=== PATIENT | female | born 1975 | race Caucasian/White ===

== ENCOUNTER 2018-02-10 21:36 | Emergency (ER) | payer SELFPAY ==
[~2018-02-10] VITALS: Ht 175.3 cm; Wt 84.4 kg
[2018-02-10 21:59] VITALS: BP 119/78
[2018-02-10] MEDS ORDERED: MORPHINE SULFATE 10 MG/ML VIAL. IM ONE (22:15)
[2018-02-10] MEDS ORDERED: diazePAM 5 MG TABLET PO ONE (22:15)
--- NOTE | 2018-02-10 22:30 | PHYS DOC ---
Past Medical History Past Medical History: No Pertinent History Past Surgical History: Tubal ligation Alcohol Use: None Drug Use: None Adult General Chief Complaint Chief Complaint: MECHANICAL FALL HPI HPI Patient is a 42 year old female who presents with right knee pain. Patient was evading an aggressive dog. She was running up some steps onto a porch when she fell causing injury to the right knee. She also strained her low back. The accident just happened prior to arrival. She complains of left low back pain and right knee pain. She has been able to weight-bear but with pain. Denies additional injury. The dog did not actually bite her. Review of Systems Review of Systems Constitutional: Denies fever Eyes: Denies change in visual acuity HENT: Denies nasal congestion Respiratory: Denies cough or shortness of breath Cardiovascular: No additional information not addressed in HPI GI: Denies : Denies Musculoskeletal: as above Integument: Denies Neurologic: Denies headache All other systems were reviewed and found to be within normal limits, except as documented in this note. Current Medications Current Medications Current Medications Medications (Trade) Dose Ordered Sig/Fausto Start Time Stop Time Status Last Admin Dose Admin Diazepam (Valium) 5 mg 1X ONCE 02/10/18 22:15 02/10/18 22:16 DC 02/10/18 22:23 5 MG Morphine Sulfate (Morphine Sulfate) 8 mg 1X ONCE 02/10/18 22:15 02/10/18 22:16 DC 02/10/18 22:24 8 MG Allergies Allergies Allergies Coded Allergies Type Severity Reaction Last Updated Verified No Known Drug Allergies 02/10/18 No Physical Exam Physical Exam Constitutional: Well developed, well nourished, no acute distress, non-toxic appearance HENT: Normocephalic, atraumatic, bilateral external ears normal Eyes: PERRLA, EOMI Neck: Normal range of motion, no tenderness Cardiovascular:Heart rate regular rhythm Lungs & Thorax: Bilateral breath sounds clear to auscultation Skin: Warm, dry, no erythema, no rash Back: + TTP over left lumbar paraspinal muscles. no midline tenderness. right knee is diffusely TTP, no effusion. ROM is mildly painful but she is able to ROM Extremities: No tenderness, no cyanosis Neurologic: Alert and oriented X 3 Psychologic: Affect normal Current Patient Data Vital Signs Vital Signs Date Time Temp Pulse Resp B/P (MAP) Pulse Ox O2 Delivery O2 Flow Rate FiO2 02/10/18 22:24 18 98 Room Air 02/10/18 21:59 98.6 94 119/78 (92) 98.6 EKG EKG [] Radiology/Procedures Radiology/Procedures [] Course & Med Decision Making Course & Med Decision Making Pertinent Labs and Imaging studies reviewed. (See chart for details) 22:10: Patient is seen and examined. Xrays ordered. Meds for pain. 23:00: X-ray is reviewed. No acute findings. Patient is feeling improved. Plan is for discharge home. She is given ibuprofen, Valium, tramadol to use at home as needed for pain. Follow-up with primary care doctor or return to the ER. Dragon Disclaimer Dragon Disclaimer This electronic medical record was generated, in whole or in part, using a voice recognition dictation system. Departure Departure Disposition: 01 HOME, SELF-CARE Condition: GOOD Referrals: NO PCP (PCP) Scripts Diazepam (VALIUM) 5 Mg Tablet 5 MG PO BID for muscle spasm, #10 TAB Prov: JOANA HEART DO 02/10/18 Tramadol Hcl (TRAMADOL HCL) 50 Mg Tablet 50 MG PO BID PRN for SEVERE PAIN, #20 TAB 0 Refills Prov: JOANA HEART DO 02/10/18 Ibuprofen (IBUPROFEN) 800 Mg Tablet 800 MG PO PRN TID PRN for PAIN, #30 TAB take with food or milk to avoid upsetting stomach Prov: JOANA HEART DO 02/10/18 JOANA HEART DO Feb 10, 2018 22:30
[2018-02-10] MEDS ORDERED: IBUP-1060 PO (23:00)
[2018-02-10] MEDS ORDERED: TRAM50TA PO (23:00)
[2018-02-10] MEDS ORDERED: DIAZ5TAB PO (23:00)
--- NOTE | 2018-02-10 23:15 | RAD ---
Three-view right knee dated 02/10/2018. No comparison available. Clinical data indication: Medial sided knee pain after fall today. FINDINGS: 3 views of right knee show normal bony alignment. No displaced fracture. No acute osseous or articular abnormality. No apparent joint effusion or loose body. IMPRESSION: No acute radiographic abnormality. Electronically signed by: Abdi Currie MD (02/10/2018 11:11 PM) [facility]
== END 2018-02-10 23:25 | disposition home or self-care (01) ==
LOC: ER 21:36
DX: S89.81XA Other specified injuries of right lower leg, initial encounter (principal); M25.561 Pain in right knee; M54.5 Low back pain; Z98.51 Tubal ligation status; W10.8XXA Fall (on) (from) other stairs and steps, initial encounter; Y93.02 Activity, running; Y92.89 Other specified places as the place of occurrence of the external cause; Y99.8 Other external cause status
CPT/HCPCS: 73562; 96372; 99283; J2270

== ENCOUNTER 2018-05-11 21:32 | Emergency (ER) | payer SELFPAY ==
[~2018-05-11] VITALS: Ht 175.3 cm; Wt 83.0 kg
[~2018-05-11 21:32] MED LIST: DIAZ5TAB PO; IBUP-1060 PO; TRAM50TA PO
--- NOTE | 2018-05-11 22:00 | PHYS DOC ---
Past Medical History Additional Past Medical Histor: Hepatitis C Past Surgical History: Tubal ligation Smoking: Cigarettes, 1 Pack Per Day Alcohol Use: None Drug Use: None Adult General Chief Complaint Chief Complaint: SHORTNESS OF BREATH HPI HPI Patient is a 43-year-old female who presents to the emergency department for evaluation of multiple medical complaints. She states that for the past several days, she has had a cough, productive of some thick sputum, when she is able to cough some sputum up. Her cough is mostly nonproductive. She states she has a headache only when coughing, but does not have a headache currently. She has also had some urinary frequency and hesitancy, but has not had any dysuria. She has had some generalized lower back discomfort. She has not had any fevers or chills. She developed diarrhea yesterday, but has not had any bloody stools. She has not had any nausea, vomiting, or abdominal pain. Coughing seems to worsen her symptoms. There are no alleviating factors to her symptoms otherwise. Review of Systems Review of Systems Constitutional: Denies fever or chills [] Eyes: Denies change in visual acuity, redness, or eye pain [] HENT: Denies nasal congestion or sore throat [] Respiratory: Denies hemoptysis or shortness of breath [] Cardiovascular: The patient denies any shortness of breath, chest pain, palpitations, or orthopnea [] GI: Denies abdominal pain, nausea, vomiting, bloody stools [] : Denies hematuria [] Musculoskeletal: Denies or joint pain [] Integument: Denies rash or skin lesions [] Neurologic: Denies headache, focal weakness or sensory changes [] Endocrine: Denies polyuria or polydipsia [] All other systems were reviewed and found to be within normal limits, except as documented in this note. Allergies Allergies Allergies Coded Allergies Type Severity Reaction Last Updated Verified No Known Drug Allergies 02/10/18 No Physical Exam Physical Exam PHYSICAL EXAM: CONSTITUTIONAL: Well developed, well nourished HEAD: normocephalic, atraumatic EENT: PERRL, EOMI. Conjunctivae normal color, sclerae non-icteric; moist mucous membranes. NECK: Supple, non-tender; no meningismus. LUNGS: Lungs CTA, breathing even and unlabored. Normal air movement. HEART: Regular rate and rhythm, no murmur CHEST: No deformity; non-tender ABDOMEN: The abdomen is soft, mild diffuse tenderness to palpation of the abdomen, without focal tenderness, rebound, or guarding , no masses or bruits. EXTREM: Normal ROM; no deformity, no calf tenderness. Normal pulses palpable in all extremities. There is no pedal edema. SKIN: No rash; no diaphoresis NEURO: Alert; normal speech and cognition; CN's grossly intact; strength grossly intact without focal deficit. BACK: No CVA TTP. Current Patient Data Vital Signs Vital Signs Date Time Temp Pulse Resp B/P (MAP) Pulse Ox O2 Delivery O2 Flow Rate FiO2 05/11/18 21:35 97.4 86 18 104/53 (70) 99 Room Air 97.4 Lab Values Laboratory Tests Test 05/11/18 21:40 05/11/18 21:42 05/11/18 21:45 05/11/18 22:05 Urine Collection Type Unknown Urine Color Yellow Urine Clarity Clear Urine pH 6.0 Urine Specific [place] 1.020 Urine Protein Negative mg/dL (NEG-TRACE) Urine Glucose (UA) Negative mg/dL (NEG) Urine Ketones (Stick) Negative mg/dL (NEG) Urine Blood Moderate (NEG) Urine Nitrite Negative (NEG) Urine Bilirubin Negative (NEG) Urine Urobilinogen Dipstick 1.0 mg/dL (0.2 mg/dL) Urine Leukocyte Esterase Negative (NEG) Urine RBC Occ /HPF (0-2) Urine WBC 1-4 /HPF (0-4) Urine Squamous Epithelial Cells Mod /LPF Urine Bacteria Moderate /HPF (0-FEW) Urine Mucus Mod /LPF POC Urine HCG, Qualitative Hcg negative (Negative) White Blood Count 4.4 x10^3/uL (4.0-11.0) Red Blood Count 4.46 x10^6/uL (3.50-5.40) Hemoglobin 14.8 g/dL (12.0-15.5) Hematocrit 43.2 % (36.0-47.0) Mean Corpuscular Volume 97 fL (79-100) Mean Corpuscular Hemoglobin 33 pg (25-35) Mean Corpuscular Hemoglobin Concent 34 g/dL (31-37) Red Cell Distribution Width 13.3 % (11.5-14.5) Platelet Count 208 x10^3/uL (140-400) Neutrophils (%) (Auto) 46 % (31-73) Lymphocytes (%) (Auto) 42 % (24-48) Monocytes (%) (Auto) 9 % (0-9) Eosinophils (%) (Auto) 2 % (0-3) Basophils (%) (Auto) 2 % (0-3) Neutrophils # (Auto) 2.0 x10^3uL (1.8-7.7) Lymphocytes # (Auto) 1.8 x10^3/uL (1.0-4.8) Monocytes # (Auto) 0.4 x10^3/uL (0.0-1.1) Eosinophils # (Auto) 0.1 x10^3/uL (0.0-0.7) Basophils # (Auto) 0.1 x10^3/uL (0.0-0.2) Sodium Level 136 mmol/L (136-145) Potassium Level 3.5 mmol/L (3.5-5.1) Chloride Level 100 mmol/L (98-107) Carbon Dioxide Level 25 mmol/L (21-32) Anion Gap 11 (6-14) Blood Urea Nitrogen 7 mg/dL (7-20) Creatinine 1.0 mg/dL (0.6-1.0) Estimated GFR (Cockcroft-Gault) 60.0 BUN/Creatinine Ratio 7 (6-20) Glucose Level 98 mg/dL (70-99) Calcium Level 8.9 mg/dL (8.5-10.1) Total Bilirubin 0.2 mg/dL (0.2-1.0) Aspartate Amino Transferase (AST) 45 U/L (15-37) H Alanine Aminotransferase (ALT) 60 U/L (14-59) H Alkaline Phosphatase 112 U/L (46-116) Total Protein 8.6 g/dL (6.4-8.2) H Albumin 3.7 g/dL (3.4-5.0) Albumin/Globulin Ratio 0.8 (1.0-1.7) L Lipase 150 U/L (73-393) Influenza Type A Antigen Positive (NEGATIVE) Influenza Type B Antigen Negative (NEGATIVE) Laboratory Tests 05/11/18 21:45 Laboratory Tests 05/11/18 21:45 EKG EKG Normal sinus rhythm a rate of 75 beats for minute, normal axis, normal intervals , poor anterior R progression without acute ischemic ST/T changes.[] Radiology/Procedures Radiology/Procedures ER physician preliminary chest x-ray interpretation: No acute disease[] Course & Med Decision Making Course & Med Decision Making Pertinent Labs and Imaging studies reviewed. (See chart for details) [10:44 PM:Patient remains stable. I discussed test results, the need for close follow-up, and return precautions.] Dragon Disclaimer Dragon Disclaimer This electronic medical record was generated, in whole or in part, using a voice recognition dictation system. Departure Departure Impression: Primary Impression: Influenza A Disposition: HOME, SELF-CARE Condition: STABLE Patient Instructions: Cough, Adult, Dysuria, Influenza, Adult Scripts Benzonatate (TESSALON PERLE) 100 Mg Capsule 1 CAP PO TID, #21 CAP Prov: GEORGE DAVISON MD 05/11/18 Oseltamivir Phosphate (TAMIFLU) 75 Mg Capsule 1 CAP PO BID, #10 CAP Prov: GEORGE DAVISON MD 05/11/18 Sulfamethoxazole/Trimethoprim (BACTRIM DS TABLET) 1 Each Tablet 1 TAB PO BID, #6 TAB Prov: GEORGE DAVISON MD 05/11/18 GEORGE DAVISON MD May 11, 2018 22:00
[2018-05-11 22:12] LABS: BASO # 0.1 x10^3/uL (0.0-0.2); BASO % 2 % (0-3); EOS # 0.1 x10^3/uL (0.0-0.7); EOS % 2 % (0-3); HEMATOCRIT 43.2 % (36.0-47.0); HEMOGLOBIN 14.8 g/dL (12.0-15.5); LYMPH # 1.8 x10^3/uL (1.0-4.8); LYMPH % 42 % (24-48); MEAN CORPUSCULAR HEMOGLOBIN 33 pg (25-35); MEAN CORPUSCULAR HGB CONC 34 g/dL (31-37); MEAN CORPUSCULAR VOLUME 97 fL (79-100); MONO # 0.4 x10^3/uL (0.0-1.1); MONO % 9 % (0-9); NEUT % 46 % (31-73); PLATELET COUNT 208 x10^3/uL (140-400); RED BLOOD COUNT 4.46 x10^6/uL (3.50-5.40); RED CELL DISTRIBUTION WIDTH 13.3 % (11.5-14.5); WHITE BLOOD COUNT 4.4 x10^3/uL (4.0-11.0)
[2018-05-11 22:13] LABS: BILIRUBIN,URINE NEGATIVE (NEG); CLARITY,URINE CLEAR; COLOR,URINE YELLOW; NITRITE,URINE NEGATIVE (NEG); PROTEIN,URINE NEGATIVE (NEG-TRACE)
[2018-05-11 22:17] LABS: BACTERIA,URINE MODERATE /HPF (0-FEW); RBC,URINE OCC /HPF (0-2)
[2018-05-11 22:18] LABS: SQUAMOUS EPITHELIAL CELL,UR MOD /LPF
[2018-05-11 22:19] LABS: CALCIUM 8.9 mg/dL (8.5-10.1); POTASSIUM 3.5 mmol/L (3.5-5.1)
[2018-05-11 22:26] LABS: ALBUMIN 3.7 g/dL (3.4-5.0); ALBUMIN/GLOBULIN RATIO 0.8 (1.0-1.7); TOTAL BILIRUBIN 0.2 mg/dL (0.2-1.0); TOTAL PROTEIN 8.6 g/dL (6.4-8.2)
[2018-05-11 22:30] LABS: INFLUENZA A PATIENT POSITIVE (NEGATIVE); INFLUENZA B PATIENT NEGATIVE (NEGATIVE)
[2018-05-11] MEDS ORDERED: BENZ100C PO (22:48)
[2018-05-11] MEDS ORDERED: OSEL75CA PO (22:48)
[2018-05-11] MEDS ORDERED: SULF1TAB24 PO (22:48)
[2018-05-11 23:00] VITALS: BP 147/65
--- NOTE | 2018-05-12 01:22 | RAD ---
Two-view chest dated 05/11/2018. No comparison available. CLINICAL INDICATION: Cough for 2 days. FINDINGS: PA and lateral views obtained. Heart and mediastinal contours are within normal limits. Lungs are somewhat hyperinflated but otherwise clear. No consolidation or pleural effusion. Calcified right hilar lymph nodes with mild peribronchial thickening. IMPRESSION: 1. No acute radiographic abnormality. 2. Mild peribronchial thickening could be related to acute or chronic bronchial inflammatory process. Electronically signed by: Abdi Currie MD (05/12/2018 1:20 AM) [facility]
--- NOTE | 2018-05-12 07:20 | EKG ---
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
== END 2018-05-11 23:38 | disposition home or self-care (01) ==
LOC: ER 21:32
DX: J10.1 Influenza due to other identified influenza virus with other respiratory manifestations (principal); F17.210 Nicotine dependence, cigarettes, uncomplicated; Z98.51 Tubal ligation status
CPT/HCPCS: 36415; 71046; 80053; 81001; 81025; 83690; 85025; 87086; 87804; 93005; 99284-25

== ENCOUNTER 2019-01-04 10:47 | Emergency (ER) | payer SELFPAY ==
[~2019-01-04] VITALS: Ht 175.3 cm; Wt 79.8 kg
[~2019-01-04 10:47] MED LIST changes: +BENZ100C PO; +CEPH500C PO; +OSEL75CA PO; +SULF1TAB24 PO
[2019-01-04] MEDS ORDERED: IV NORMAL SALINE 1000ML BAG 1,000 ML IV SCH (11:14)
[2019-01-04] MEDS ORDERED: ONDANSETRON PF 4 MG/2 ML VIAL. IV ONE (11:15)
[2019-01-04] MEDS ORDERED: MECLIZINE HCL 12.5 MG TABLET. PO ONE (11:15)
[2019-01-04] MEDS ORDERED: SCOPOLAMINE 1.5MG PATCH. TD ONE (11:15)
[2019-01-04] MEDS ORDERED: LORazepam 0.5 MG TABLET PO ONE (11:15)
[2019-01-04 11:25] LABS: BILIRUBIN,URINE NEGATIVE (NEG); CLARITY,URINE CLEAR; COLOR,URINE YELLOW; NITRITE,URINE NEGATIVE (NEG); PROTEIN,URINE NEGATIVE (NEG-TRACE); UROBILINOGEN,URINE 0.2 mg/dL (0.2 mg/dL)
[2019-01-04 11:33] LABS: BASO # 0.1 x10^3/uL (0.0-0.2); BASO % 1 % (0-3); EOS # 0.1 x10^3/uL (0.0-0.7); EOS % 2 % (0-3); HEMOGLOBIN 15.2 g/dL (12.0-15.5); LYMPH # 1.8 x10^3/uL (1.0-4.8); LYMPH % 31 % (24-48); MEAN CORPUSCULAR HEMOGLOBIN 34 pg (25-35); MEAN CORPUSCULAR HGB CONC 35 g/dL (31-37); MEAN CORPUSCULAR VOLUME 97 fL (79-100); MONO # 0.4 x10^3/uL (0.0-1.1); MONO % 7 % (0-9); NEUT # 3.4 x10^3/uL (1.8-7.7); NEUT % 59 % (31-73); PLATELET COUNT 202 x10^3/uL (140-400); RED BLOOD COUNT 4.46 x10^6/uL (3.50-5.40); RED CELL DISTRIBUTION WIDTH 13.2 % (11.5-14.5); WHITE BLOOD COUNT 5.8 x10^3/uL (4.0-11.0)
[2019-01-04 11:35] LABS: BACTERIA,URINE MANY /HPF (0-FEW); RBC,URINE 0 /HPF (0-2); SQUAMOUS EPITHELIAL CELL,UR MANY /LPF; WBC,URINE 0 /HPF (0-4)
[2019-01-04 11:39] LABS: CALCIUM 9.4 mg/dL (8.5-10.1); CREATININE 0.8 mg/dL (0.6-1.0); GFR 77.6; POTASSIUM 4.1 mmol/L (3.5-5.1)
[2019-01-04 11:44] LABS: ALBUMIN 3.9 g/dL (3.4-5.0); ALBUMIN/GLOBULIN RATIO 0.8 (1.0-1.7); MAGNESIUM 1.9 mg/dL (1.8-2.4); TOTAL BILIRUBIN 0.5 mg/dL (0.2-1.0); TOTAL PROTEIN 8.7 g/dL (6.4-8.2)
[2019-01-04 12:18] VITALS: BP 109/70
--- NOTE | 2019-01-04 12:47 | RAD ---
CT HEAD WO CONTRAST History: Dizziness. Comparison: None. Technique: Noncontrast CT imaging was performed of the head. Exposure: One or more of the following individualized dose reduction techniques were utilized for this examination: 1. Automated exposure control 2. Adjustment of the mA and/or kV according to patient size 3. Use of iterative reconstruction technique. Findings: No intracranial hemorrhage. No mass effect. No hydrocephalus. Extra-axial spaces are unremarkable. Imaged orbits are unremarkable. Imaged paranasal sinuses and mastoid air cells are clear. Impression: 1. No acute intracranial abnormality. Electronically signed by: Skyler Reveles DO (01/04/2019 12:44 PM) [facility]
--- NOTE | 2019-01-04 12:51 | PHYS DOC ---
Past Medical History Past Medical History: No Pertinent History, Hepatitis Additional Past Medical Histor: Hepatitis C Past Surgical History: Tubal ligation Alcohol Use: None Drug Use: None Adult General Chief Complaint Chief Complaint: DIZZY/LIGHT HEADED HPI HPI Patient is a 43-year-old female who presents with acute onset of dizziness that started yesterday. She states that the dizziness feels like everything is spinning. She states the symptoms are worsened when she changes position or turn s her head quickly. She does indicate that she has had some nausea but no vomiting. She also states that she feels very off balance. She denies any falls and has had no head injury. She states that she had a similar episode a few weeks ago that lasted 3 days and then spontaneously resolved. She states that this time it seems like the symptoms are worse. She denies any lateralizing weakness, facial droop or speech deficits.[] Review of Systems Review of Systems Constitutional: Denies fever or chills [] Respiratory: Denies cough or shortness of breath [] Cardiovascular: No additional information not addressed in HPI [] GI: Denies abdominal pain, vomiting or diarrhea. Patient does admit to nausea. [] Integument: Denies rash or skin lesions [] Neurologic: Denies headache, focal weakness or sensory changes. Complains of vertiginous dizziness. [] All other systems were reviewed and found to be within normal limits, except as documented in this note. Current Medications Current Medications Current Medications Medications (Trade) Dose Ordered Sig/Fausto Start Time Stop Time Status Last Admin Dose Admin Lorazepam (Ativan) 0.5 mg 1X ONCE 01/04/19 11:15 01/04/19 11:18 DC 01/04/19 11:27 0.5 MG Meclizine HCl (Antivert) 25 mg 1X ONCE 01/04/19 11:15 01/04/19 11:18 DC 01/04/19 11:27 25 MG Ondansetron HCl (Zofran) 4 mg 1X ONCE 01/04/19 11:15 01/04/19 11:18 DC 01/04/19 11:27 4 MG Scopolamine (Transderm-Scop) 1 patch 1X ONCE 01/04/19 11:15 01/04/19 11:18 DC 01/04/19 11:27 1 PATCH Sodium Chloride 1,000 ml @ 1,000 mls/hr Q1H 01/04/19 11:14 01/04/19 12:13 DC 01/04/19 11:26 1,000 MLS/HR Allergies Allergies Allergies Coded Allergies Type Severity Reaction Last Updated Verified No Known Drug Allergies 02/10/18 No Physical Exam Physical Exam Constitutional: Well developed, well nourished, no acute distress, non-toxic appearance. [] HENT: Normocephalic, atraumatic, bilateral external ears normal, oropharynx moist, no oral exudates, nose normal. [] Eyes: PERRLA, EOMI, conjunctiva normal, no discharge. [] Neck: Normal range of motion, no tenderness, supple. [] Cardiovascular: Regular rate and rhythm[] Lungs & Thorax: Bilateral breath sounds clear to auscultation [] Abdomen: Bowel sounds normal, soft, no tenderness. [] Skin: Warm, dry, no erythema, no rash. [] Extremities: No tenderness, no cyanosis, no clubbing, ROM intact. [] Neurologic: Alert and oriented X 3, no focal deficits noted. [] Current Patient Data Vital Signs Vital Signs Date Time Temp Pulse Resp B/P (MAP) Pulse Ox O2 Delivery O2 Flow Rate FiO2 01/04/19 10:50 98.8 85 14 124/84 (97) 98 Room Air 98.8 Lab Values Laboratory Tests Test 01/04/19 10:50 01/04/19 11:20 Urine Collection Type Unknown Urine Color Yellow Urine Clarity Clear Urine pH 6.0 Urine Specific [place] <=1.005 Urine Protein Negative mg/dL (NEG-TRACE) Urine Glucose (UA) Negative mg/dL (NEG) Urine Ketones (Stick) Negative mg/dL (NEG) Urine Blood Negative (NEG) Urine Nitrite Negative (NEG) Urine Bilirubin Negative (NEG) Urine Urobilinogen Dipstick 0.2 mg/dL (0.2 mg/dL) Urine Leukocyte Esterase Negative (NEG) Urine RBC 0 /HPF (0-2) Urine WBC 0 /HPF (0-4) Urine Squamous Epithelial Cells Many /LPF Urine Bacteria Many /HPF (0-FEW) White Blood Count 5.8 x10^3/uL (4.0-11.0) Red Blood Count 4.46 x10^6/uL (3.50-5.40) Hemoglobin 15.2 g/dL (12.0-15.5) Hematocrit 43.0 % (36.0-47.0) Mean Corpuscular Volume 97 fL (79-100) Mean Corpuscular Hemoglobin 34 pg (25-35) Mean Corpuscular Hemoglobin Concent 35 g/dL (31-37) Red Cell Distribution Width 13.2 % (11.5-14.5) Platelet Count 202 x10^3/uL (140-400) Neutrophils (%) (Auto) 59 % (31-73) Lymphocytes (%) (Auto) 31 % (24-48) Monocytes (%) (Auto) 7 % (0-9) Eosinophils (%) (Auto) 2 % (0-3) Basophils (%) (Auto) 1 % (0-3) Neutrophils # (Auto) 3.4 x10^3/uL (1.8-7.7) Lymphocytes # (Auto) 1.8 x10^3/uL (1.0-4.8) Monocytes # (Auto) 0.4 x10^3/uL (0.0-1.1) Eosinophils # (Auto) 0.1 x10^3/uL (0.0-0.7) Basophils # (Auto) 0.1 x10^3/uL (0.0-0.2) Sodium Level 141 mmol/L (136-145) Potassium Level 4.1 mmol/L (3.5-5.1) Chloride Level 104 mmol/L (98-107) Carbon Dioxide Level 28 mmol/L (21-32) Anion Gap 9 (6-14) Blood Urea Nitrogen 4 mg/dL (7-20) L Creatinine 0.8 mg/dL (0.6-1.0) Estimated GFR (Cockcroft-Gault) 77.6 BUN/Creatinine Ratio 5 (6-20) L Glucose Level 96 mg/dL (70-99) Calcium Level 9.4 mg/dL (8.5-10.1) Magnesium Level 1.9 mg/dL (1.8-2.4) Total Bilirubin 0.5 mg/dL (0.2-1.0) Aspartate Amino Transferase (AST) 49 U/L (15-37) H Alanine Aminotransferase (ALT) 72 U/L (14-59) H Alkaline Phosphatase 102 U/L (46-116) Total Protein 8.7 g/dL (6.4-8.2) H Albumin 3.9 g/dL (3.4-5.0) Albumin/Globulin Ratio 0.8 (1.0-1.7) L Thyroid Stimulating Hormone (TSH) 4.561 uIU/mL (0.358-3.74) H Laboratory Tests 01/04/19 11:20 Laboratory Tests 01/04/19 11:20 EKG EKG [] Radiology/Procedures Radiology/Procedures [] Impressions: PROCEDURE: CT HEAD WO CONTRAST CT HEAD WO CONTRAST History: Dizziness. Comparison: None. Technique: Noncontrast CT imaging was performed of the head. Exposure: One or more of the following individualized dose reduction techniques were utilized for this examination: 1. Automated exposure control 2. Adjustment of the mA and/or kV according to patient size 3. Use of iterative reconstruction technique. Findings: No intracranial hemorrhage. No mass effect. No hydrocephalus. Extra-axial spaces are unremarkable. Imaged orbits are unremarkable. Imaged paranasal sinuses and mastoid air cells are clear. Impression: 1. No acute intracranial abnormality. Electronically signed by: Skyler Reveles DO (01/04/2019 12:44 PM) [facility] Course & Med Decision Making Course & Med Decision Making Pertinent Labs and Imaging studies reviewed. (See chart for details) [] Dragon Disclaimer Dragon Disclaimer This electronic medical record was generated, in whole or in part, using a voice recognition dictation system. Departure Departure Impression: Primary Impression: Benign paroxysmal vertigo Disposition: 01 HOME, SELF-CARE Condition: STABLE Referrals: NO PCP (PCP) Patient Instructions: Benign Positional Vertigo Scripts Scopolamine (TRANSDERM-SCOP) 1 Each Patch.td72 1 PATCH TP Q3DAYS PRN for DIZZINESS, #4 PATCH Prov: HERBERT THOMAS Jr. DO 01/04/19 Meclizine Hcl (MECLIZINE HCL) 25 Mg Tablet 25 MG PO PRN TID PRN for DIZZINESS, #30 TAB dizziness Prov: HERBERT THOMAS Jr. DO 01/04/19 Ondansetron Hcl (ZOFRAN) 4 Mg Tablet 4 MG PO PRN TID PRN for NAUSEA, #15 TAB nausea/vomiting Prov: HERBERT THOMAS Jr. DO 01/04/19 Problem Qualifiers Primary Impression: Benign paroxysmal vertigo Laterality: unspecified laterality Qualified Codes: H81.10 - Benign paroxysmal vertigo, unspecified ear HERBERT THOMAS Jr. DO Jan 04, 2019 12:51
[2019-01-04] MEDS ORDERED: ONDA4TAB7 PO (12:55)
[2019-01-04] MEDS ORDERED: MECL25TA3 PO (12:55)
[2019-01-04] MEDS ORDERED: SCOP1PAT11 TP (12:55)
== END 2019-01-04 13:25 | disposition home or self-care (01) ==
LOC: ER 10:47
DX: H81.10 Benign paroxysmal vertigo, unspecified ear (principal); B18.2 Chronic viral hepatitis C; Z98.51 Tubal ligation status
CPT/HCPCS: 36415; 70450; 80053; 81001; 83735; 84443; 85025; 87086; 96361; 96374; 99285; J2405; J7030; J8597; 96375